=== PATIENT | male | born 1980 | race Caucasian/White ===

== ENCOUNTER 2017-02-09 14:01 | Emergency (ER) | payer OTHER ==
[~2017-02-09] VITALS: Ht 180.3 cm; Wt 79.4 kg
[2017-02-09] MEDS ORDERED: NO MEDICATIONS (14:06)
== END 2017-02-09 15:05 | disposition home or self-care (01) ==
LOC: SED 14:01
DX: L23.7 Allergic contact dermatitis due to plants, except food (principal); F17.200 Nicotine dependence, unspecified, uncomplicated
CPT/HCPCS: 99282